=== PATIENT | female | born 1995 | race Caucasian/White ===

== ENCOUNTER 2023-06-20 06:18 | Day surgery (SDC) | payer OTHER ==
[2023-06-20] VITALS (17 sets, daily range): BP systolic 96–126; BP diastolic 49–75
[~2023-06-20] VITALS: Ht 152.4 cm; Wt 72.2 kg
[~2023-06-20 06:18] MED LIST: ACYC200 PO; ACYC400 PO; AMLO5 PO; AMOX500 PO; AMOX50SU PO; Amoxicillin500 MG PO; Amoxicillin875 MG PO; BCP; Bactrim Ds Tab1 EACH PO; CEPH500 PO; CODACE30 PO; CODGUAEL PO; Colace100 MG PO; IBUP600 PO; IBUP800 PO; ONDA4ODT MM; OXYACE5T PO; PENVK500 PO; PREN-16 PO; PROC10 PO; PROM25 PO; Percocet 5-3251 EACH PO; SERT50 PO; Ultram50 MG PO; [UNRECOGNIZED DRUG - OTHER]
[2023-06-20] MEDS ORDERED: Lactated Ringer's 1,000 ML IV SCH ×2 (06:20→10:00)
[2023-06-20] MEDS ORDERED: CeFAZolin Sodium 2,000 MG in NS 100 ML IV SCH (06:20)
[2023-06-20] MEDS ORDERED: Dexamethasone Sod Phos 10 MG/ML 1ML VIAL ONE (07:21)
[2023-06-20] MEDS ORDERED: propofoL 20 ML IV ONE (07:21)
[2023-06-20] MEDS ORDERED: Ondansetron HCl 2 MG / ML 2ML Vial ONE (07:21)
[2023-06-20] MEDS ORDERED: Rocuronium Bromide 10 MG/ML 5ML Injection IV ONE ×2 (07:21)
[2023-06-20] MEDS ORDERED: Ketorolac Tromethamine 30mg Vial ONE (07:21)
[2023-06-20] MEDS ORDERED: FentaNYL Citrate 50 MCG/ML 5 ML Injection ONE ×2 (07:21→08:50)
[2023-06-20] MEDS ORDERED: Midazolam HCl 1MG / ML 2ML Vial IV ONE (07:50)
[2023-06-20] MEDS ORDERED: Lidocaine 2%-Epineph 1:200000 20 ML SDV ONE (07:56)
[2023-06-20] MEDS ORDERED: Sugammadex Sodium 200 MG/2ML SDV (100 MG/ML) ONE (09:20)
[2023-06-20] MEDS ORDERED: DiphenhydrAMINE HCL 25 MG Cap PO PRN (09:55)
[2023-06-20] MEDS ORDERED: Acetaminophen 325 MG TABLET PO PRN (09:55)
[2023-06-20] MEDS ORDERED: Ibuprofen 400 MG Tab PO PRN (09:55)
[2023-06-20] MEDS ORDERED: HYDROcodone 10-APAP 325 TAB PO PRN (09:55)
[2023-06-20] MEDS ORDERED: FentaNYL Citrate 50 MCG/ML 2 ML Injection IV PRN (09:55)
[2023-06-20] MEDS ORDERED: Ondansetron HCl 2 MG / ML 2ML Vial IV PRN (10:00)
[2023-06-20] MEDS ORDERED: Simethicone 80 MG Chew PO PRN (10:00)
[2023-06-20] MEDS ORDERED: OxyCODONE HCL 5 MG TAB PO PRN (10:00)
--- NOTE | 2023-06-20 10:50 | NUR ---
PATIENT ARRIVED TO THE FLOOR FROM PACU. VITAL SIGNS STABLE. 2 LAP SITES WITH STERI STRIPS, UMBILICUS SITE WITH A LITTLE S/S DRAINAGE. DUNN CATHETER IN PLACE, DRAINING TO GRAVITY, STAT LOCK IN PLACE. RATES PAIN AT A 7 OUT OF 10. PATIENT DENIES NAUSEA. SHE IS TOLERATING JELLO AND WATER WELL. RESTING COMFORTABLE. CALL LIGHT IN PLACE.
[2023-06-20] MEDS ORDERED: Metoclopramide HCl 5MG / ML 2ML Vial IV PRN (11:55)
[2023-06-20] MEDS ORDERED: Ketorolac Tromethamine 30mg Vial IV SCH (12:00)
--- NOTE | 2023-06-20 12:21 | NUR ---
DUNN REMOVED. ASSISTED PATIENT TO AMBULATE TO THE BATHROOM. SHE WAS ABLE TO URINATE. MODERATE AMOUNT OF S/S BLOODY DISCHARGE. PLACED NEW ANAY-PAD. PATIENT NOW RESTING COMFORTABLY. CALL LIGHT IN PLACE. INSTRUCTED PATIENT TO CALL RN IF SHE NOTICES FURTHER DISCHARGE.
[2023-06-20 12:55] LABS: BASOPHILS ABSOLUTE AUTO 0.02 K/mm3 (0.00-0.23); BASOPHILS PERCENT AUTO 0 % (0-2); EOSINOPHILS PERCENT AUTO 0 % (0-6); Hematocrit 34.6 % (33.0-51.0); Hemoglobin 10.2 g/dL (11.5-16.0); IMMATURE GRAN ABSOLUTE AUTO 0.06 K/mm3 (0.00-0.10); IMMATURE GRAN PERCENT AUTO 0 % (0-1); LYMPHOCYTES ABSOLUTE AUTO 0.36 K/mm3 (0.84-5.20); LYMPHOCYTES PERCENT AUTO 2 % (21-46); MONOCYTES ABSOLUTE AUTO 0.17 K/mm3 (0.16-1.47); MONOCYTES PERCENT AUTO 1 % (4-13); Mean Corpuscular HGB 23.3 pg (26.0-34.0); Mean Corpuscular HGB Conc 29.5 g/dL (31.5-36.5); Mean Corpuscular Volume 79 fL (80-100); Mean Platelet Volume 9.7 fL (9.1-12.4); NEUTROPHILS ABSOLUTE AUTO 16.13 K/mm3 (1.96-9.15); NEUTROPHILS PERCENT AUTO 96 % (41-73); Platelet Count 311 K/mm3 (150-400); RDW Coefficient Variation 13.9 % (11.7-14.2); RDW Standard Deviation 39.8 fL (35.1-46.3); Red Blood Cell Count 4.38 M/mm3 (3.80-5.20); White Blood Cell Count 16.74 K/mm3 (4.00-11.30)
[2023-06-20 13:30] LABS: BASOPHILS PERCENT MAN 0 % (0-2); EOSINOPHILS PERCENT MAN 0 % (0-6); LYMPHOCYTES ABSOLUTE MAN 0.66 K/mm3 (0.84-5.20); LYMPHOCYTES PERCENT MAN 4 % (21-46); MONOCYTES PERCENT MAN 0 % (4-13); NEUTROPHILS ABSOLUTE MAN 16.07 K/mm3 (1.96-9.15); SEG NEUTROPHILS PERCENT MAN 96 % (41-73); TOTAL CELLS COUNTED 100
--- NOTE | 2023-06-20 18:55 | NUR ---
SHIFT SUMMARY/DISCHARGE PATIENT ATE SOME OF HER DINNER. AMBULATED TO THE BATHROOM WITHOUT COMPLICATIONS. URINATING WELL. LEFT FOREARM IV REMOVED. TAKING IN FLUIDS WELL. DENIES NAUSEA. DISCHARGE INSTRUCTIONS DISCUSSED. PROVIDED PATIENT WITH HANDWRITTEN RX. PICKED UP BY .
== END 2023-06-20 18:30 | disposition home or self-care (01) ==
LOC: ORSCMMR 06:18 → ORD 08:00 → ORSCMMR 08:00 → SURS 10:48 → ORSCMMR 18:30
PROVIDERS: Obstetrics & Gynecology
PROC: 0UT7FZZ Resection of Bilateral Fallopian Tubes, Via Natural or Artificial Opening With Percutaneous Endoscopic Assistance (ICD-10-PCS; principal; 2023-06-20 08:00)
PROC: 0UT9FZZ Resection of Uterus, Via Natural or Artificial Opening With Percutaneous Endoscopic Assistance (ICD-10-PCS; principal; 2023-06-20 08:00)
DX: N92.1 Excessive and frequent menstruation with irregular cycle (principal); D63.8 Anemia in other chronic diseases classified elsewhere; I10 Essential (primary) hypertension; F32.A Depression, unspecified; Z79.899 Other long term (current) drug therapy
CPT/HCPCS: 36415; 85025; 86850; 86900; 86901; 88307; A9270; J0690; J1100; J1885; J2250; J2405; J2704; J2765; J3010; J7120

== ENCOUNTER 2023-06-28 23:39 | Emergency (ER) | payer OTHER ==
[~2023-06-28] VITALS: Ht 167.6 cm; Wt 68.5 kg
[2023-06-29 02:30] LABS: BASOPHILS ABSOLUTE AUTO 0.01 K/mm3 (0.00-0.23); BASOPHILS PERCENT AUTO 0 % (0-2); EOSINOPHILS ABSOLUTE AUTO 0.14 K/mm3 (0.00-0.68); EOSINOPHILS PERCENT AUTO 2 % (0-6); Hemoglobin 9.8 g/dL (11.5-16.0); IMMATURE GRAN ABSOLUTE AUTO 0.03 K/mm3 (0.00-0.10); IMMATURE GRAN PERCENT AUTO 0 % (0-1); LYMPHOCYTES ABSOLUTE AUTO 2.02 K/mm3 (0.84-5.20); LYMPHOCYTES PERCENT AUTO 28 % (21-46); MONOCYTES ABSOLUTE AUTO 0.58 K/mm3 (0.16-1.47); MONOCYTES PERCENT AUTO 8 % (4-13); Mean Corpuscular HGB 23.1 pg (26.0-34.0); Mean Corpuscular HGB Conc 28.8 g/dL (31.5-36.5); Mean Corpuscular Volume 80 fL (80-100); Mean Platelet Volume 9.8 fL (9.1-12.4); NEUTROPHILS ABSOLUTE AUTO 4.39 K/mm3 (1.96-9.15); NEUTROPHILS PERCENT AUTO 61 % (41-73); Platelet Count 275 K/mm3 (150-400); RDW Standard Deviation 40.8 fL (35.1-46.3); Red Blood Cell Count 4.24 M/mm3 (3.80-5.20); White Blood Cell Count 7.17 K/mm3 (4.00-11.30)
[2023-06-29 02:33] LABS: Albumin, Blood 3.2 g/dL (3.4-5.0); Albumin/Globulin Ratio 1.1 (0.8-1.8); Bilirubin, Total 0.2 mg/dL (0.1-1.0); Bun/Creatinine Ratio 17.5 (12.0-20.0); Calcium, Blood 8.6 mg/dL (8.5-10.1); Creatinine, Blood 0.69 mg/dL (0.40-1.00); Potassium, Blood 3.9 mmol/L (3.5-5.5); Total Protein, Blood 6.2 g/dL (6.4-8.2)
[2023-06-29 02:34] LABS: International Normalized Ratio 0.91; Prothrombin Time Results 9.8 Sec (9.7-11.5)
== END 2023-06-29 03:51 | disposition home or self-care (01) ==
LOC: ER 23:39
PROVIDERS: Student in an Organized Health Care Education/Training Program
DX: N93.9 Abnormal uterine and vaginal bleeding, unspecified (principal); D64.9 Anemia, unspecified; Z79.899 Other long term (current) drug therapy; J45.909 Unspecified asthma, uncomplicated
CPT/HCPCS: 80053; 85025; 85610; 99283

== ENCOUNTER → 2023-11-22 | Outpatient (CLI) | payer OTHER ==
[2023-11-26 05:22] LABS: CALPROTECTIN,FECAL 20 ug/g (<=49)
== END | disposition home or self-care (01) ==
LOC: LAB SHORT 11:00 → LAB 11:00
PROVIDERS: Internal Medicine Gastroenterology
DX: R19.7 Diarrhea, unspecified (principal)
CPT/HCPCS: 83993

== ENCOUNTER 2023-12-10 07:27 | Day surgery (SDC) | payer OTHER ==
[~2023-12-10] VITALS: Ht 167.6 cm; Wt 66.9 kg
[2023-12-10] MEDS ORDERED: propofoL 50 ML IV ONE (07:35)
[2023-12-10] MEDS ORDERED: Lactated Ringer's 1,000 ML IV ONE ×2 (07:35→08:15)
[2023-12-10] MEDS ORDERED: FentaNYL Citrate 50 MCG/ML 2 ML Injection ONE (09:02)
== END 2023-12-10 09:56 | disposition home or self-care (01) ==
LOC: ORSCSDS 07:27
PROVIDERS: Internal Medicine Gastroenterology
PROC: 0DBE8ZX Excision of Large Intestine, Via Natural or Artificial Opening Endoscopic, Diagnostic (ICD-10-PCS; principal; 2023-12-10 08:45)
DX: R19.7 Diarrhea, unspecified (principal); I10 Essential (primary) hypertension; Z79.899 Other long term (current) drug therapy
CPT/HCPCS: 88305; 88342; J2704; J3010; J7120

== ENCOUNTER → 2024-02-11 | Outpatient (CLI) | payer OTHER ==
[2024-02-11 18:50] LABS: BASOPHILS ABSOLUTE AUTO 0.02 K/mm3 (0.00-0.23); BASOPHILS PERCENT AUTO 0 % (0-2); EOSINOPHILS ABSOLUTE AUTO 0.06 K/mm3 (0.00-0.68); EOSINOPHILS PERCENT AUTO 1 % (0-6); Hematocrit 39.6 % (33.0-51.0); Hemoglobin 13.2 g/dL (11.5-16.0); IMMATURE GRAN ABSOLUTE AUTO 0.02 K/mm3 (0.00-0.10); IMMATURE GRAN PERCENT AUTO 0 % (0-1); LYMPHOCYTES ABSOLUTE AUTO 1.76 K/mm3 (0.84-5.20); LYMPHOCYTES PERCENT AUTO 22 % (21-46); MONOCYTES ABSOLUTE AUTO 0.47 K/mm3 (0.16-1.47); MONOCYTES PERCENT AUTO 6 % (4-13); Mean Corpuscular HGB 31.1 pg (26.0-34.0); Mean Corpuscular HGB Conc 33.3 g/dL (31.5-36.5); Mean Corpuscular Volume 93 fL (80-100); Mean Platelet Volume 9.8 fL (9.1-12.4); NEUTROPHILS ABSOLUTE AUTO 5.69 K/mm3 (1.96-9.15); NEUTROPHILS PERCENT AUTO 71 % (41-73); Platelet Count 244 K/mm3 (150-400); RDW Coefficient Variation 13.2 % (11.7-14.2); RDW Standard Deviation 44.7 fL (35.1-46.3); Red Blood Cell Count 4.25 M/mm3 (3.80-5.20); White Blood Cell Count 8.02 K/mm3 (4.00-11.30)
== END | disposition home or self-care (01) ==
LOC: LAB SHORT 18:21 → LAB 18:21
PROVIDERS: Internal Medicine Hematology & Oncology
DX: E61.1 Iron deficiency (principal)
CPT/HCPCS: 85025